=== PATIENT | female | born 1965 | race Caucasian/White ===

== ENCOUNTER 2017-03-01 23:50 | Inpatient (IN) | payer MEDICARE ==
--- NOTE | ~2017-03-01 | DS ---
Discharge Summary [facility] [address] [place]. [address] NAME: KEVIN VASQUEZ : 65 STATUS : DIS IN PAT#: [id number] AGE: 51 ADM/REG DATE : 03/02/17 MR#: [id number] REPORT SERV DATE: 03/08/17 DICTATED BY: JESSICA ANTONY DATE: 03/07/17 REPORT STATUS : Draft TRANSCRIBED BY: MODL DATE: 03/07/17 ADMISSION DATE: 03/02/2017 DISCHARGE DATE: 03/07/2017 ADDENDUM: This dictation is an addition to interim discharge summary dictated by Dr. Ingram on 03/05/2017. I assumed care of the patient, 03/06/2017. At the time of my assumption of care, the patient still had [id number] wheezing. The patient reports that she has returned to baseline. Therapy was continued, antibiotics and steroids. The patient has significantly improved today. She remains hemodynamically stable. Given completion of workup and given her improvement and resolution of her presenting complaints, we will discharge the patient today. Plan has been discussed with the patient, who voices understanding and is agreeable with this plan. DISCHARGE DIAGNOSES: 1. Chronic obstructive pulmonary disease exacerbation. 2. Obesity hypoventilation syndrome. 3. Obstructive sleep apnea. 4. Morbid obesity. 5. Bipolar disorder. 6. Hypertension. DISCHARGE EXAM: VITAL SIGNS: Blood pressure 146/56, pulse of 83, respirations 16, O2 saturation 97% on 2 L nasal cannula, and temperature 97.5. GENERAL: The patient is lying in bed, in no acute distress. Appears stated age. Normal respiratory effort. Speaking in complete sentences. HEENT: Normocephalic, atraumatic. Extraocular motors intact. Moist oral mucosa. Anicteric sclerae. Pupils are reactive to light and accommodation. NECK: Full. Trachea midline, symmetric. No thyromegaly noted. No lymphadenopathy present. No JVD appreciated. CHEST: Nontender to palpation. No scars noted. CARDIOVASCULAR: Regular rate and rhythm. S1, S2. No murmurs, rubs, or gallops. LUNGS: Clear to auscultation bilaterally; however, decreased breath sounds secondary to body habitus. ABDOMEN: Obese. Positive bowel sounds. Nontender, nondistended. EXTREMITIES: No cyanosis, no clubbing, no edema. NEURO: Alert and oriented x3. No focal deficits appreciated. DISCHARGE MEDICATIONS: Depakote 250 mg p.o. every morning and Depakote 500 mg p.o. at bedtime, Prozac 20 mg p.o. twice a day, Singulair 10 mg p.o. daily, pantoprazole 40 mg p.o. daily, pravastatin 40 mg p.o. daily, Spiriva one puff inhalation daily, Topamax 50 mg p.o. twice a day, hydrocortisone 20 mg p.o. every morning, hydrocortisone 5 mg p.o. at bedtime. Of note, the patient was currently on hydrocortisone secondary to concern about adrenal insufficiency. In the hospital course setting, there was no evidence of that, however. The Discharge Summary [address] [address] NAME: KEVIN VASQUEZ : 65 STATUS : DIS IN PAT#: [id number] AGE: 51 ADM/REG DATE : 03/02/17 MR#: [id number] REPORT SERV DATE: 03/08/17 DICTATED BY: JESSICA ANTONY DATE: 03/07/17 REPORT STATUS : Draft TRANSCRIBED BY: SRINIVASAN DATE: 03/07/17 patient was placed on medication by primary care physician, who has better knowledge and more records available than we do here. Given that, we will continue Cortef for now and have primary care physician revisit the need for hydrocortisone. DISPOSITION: The patient will be discharged home. ACTIVITY: As tolerated. DIET: Low-salt diet. Greater than 30 minutes was spent coordinating discharge planning, dictation of note, medication reconciliation, and providing counseling. GIUSEPPE/SRINIVASAN Jessica Antony MD / [id number] CC: MD Sarbjit Flores M.D.
--- NOTE | ~2017-03-01 | IDS ---
Interim Discharge Summary [facility] [address] [place]. [address] NAME: KEVIN VASQUEZ : 65 STATUS : ADM IN PAT#: [id number] AGE: 51 ADM/REG DATE : 03/02/17 MR#: [id number] REPORT SERV DATE: 03/05/17 DICTATED BY: CHANTE INGRAM DATE: 03/05/17 REPORT STATUS : Draft TRANSCRIBED BY: MODL DATE: 03/05/17 ADMISSION DATE: 03/02/2017 DISCHARGE DATE: REASON FOR ADMISSION: Acute on chronic COPD exacerbation. HISTORY OF PRESENT ILLNESS: Please refer to Dr. Vlades's history and physical dated 03/02 for complete details regarding the patient's admission. In brief, the patient was admitted to the hospitalist service for management of her acute on chronic COPD exacerbation. HOSPITAL COURSE: The patient was admitted by Dr. Valdes and started on Solu-Medrol. She had significant wheezing on the day of admission. She was then switched over to prednisone as she was becoming more comfortable. She was being maintained on Spiriva, antibiotics, budesonide, and arformoterol. She has been clinically improving daily, but slowly. At the time of this dictation, she had a little bit of wheezing on her upper airway, but very diminished breath sounds at the bases. The patient has been wanting to go home every day; however, she still has significant tightness in her chest and concerned that if she were to go home, she will be right back in the ER with a continued flare-up, she is clearly not at her baseline. She does have this questionable history of adrenal insufficiency, for which she is on Cortef at home. However, her Cortef has been discontinued as she has been on prednisone, but her blood pressures have been just fine, I am not convinced that she will need to be back on Cortef after this hospitalization. She did have some QT prolongation on EKG in the ER, likely due to beta agonist; however, this has resolved and has an EKG the following day that did not show any prolonged QT. The patient has continued to use her CPAP here in the hospital. She has not had any issues with her bipolar or pseudoseizures. Further disposition per oncoming hospitalist, starting 03/06, however, anticipate discharging her home in possibly two to three days depending on resolution of her COPD. DISCHARGE DIAGNOSES: Acute on chronic chronic obstructive pulmonary disease, slowly improving; obstructive sleep apnea, on CPAP; lactic acidosis, resolving; morbid obesity; bipolar disease with history of pseudoseizures, now stable; questionable history of Winston's, on Cortef at home, however, her blood pressure has been fine off it here at the hospital. PROCEDURES: Include a chest x-ray. DISPOSITION: We will obtain a followup PA and lateral chest x-ray on Sunday. HEATHER/SRINIVASAN Chante Ingram MD / [id number] Interim Discharge Summary [address] [address] NAME: KEVIN VASQUEZ : 65 STATUS : ADM IN [facility]#: [id number] AGE: 51 ADM/REG DATE : 03/02/17 MR#: [id number] REPORT SERV DATE: 03/05/17 DICTATED BY: CHANTE INGRAM DATE: 03/05/17 REPORT STATUS : Draft TRANSCRIBED BY: SRINIVASAN DATE: 03/05/17 CC: MD Sarbjit Rodriguez M.D.
--- NOTE | ~2017-03-01 | HP ---
History And Physical [facility] [address] [place]. [address] NAME: KEVIN WINN : 65 STATUS : ADM Jonnie PAT#: [id number] AGE: 51 ADM/REG DATE : 03/01/17 MR#: [id number] REPORT SERV DATE: 03/02/17 DICTATED BY: MARCELLO ALTMAN DATE: 03/02/17 REPORT STATUS : Draft TRANSCRIBED BY: MODL DATE: 03/02/17 DATE OF ADMISSION: 03/02/2017 CHIEF COMPLAINT: Shortness of breath. HISTORY OF PRESENT ILLNESS: This is a 51-year-old, obese, female, who has a history of bipolar disorder, pseudoseizures, obstructive sleep apnea, noncompliant with CPAP therapy who presents to the emergency room at [facility] in [place] with the above-mentioned complaint. History is obtained from the patient, her daughter who was at bedside, and reviewing data available on the [employer] system. According to Mrs. Winn, she had been in the usual state of health until about five days ago when she started having runny nose, severe myalgias, and difficulty breathing. She also started having a chronic cough due to the fact she had post-nasal drip-like symptoms. She then developed sore throat because of this as well. In the last day or so, she started wheezing bilaterally and despite using her inhalers could not get up, walk or perform activities of daily living. They finally decided to come into the emergency room to be evaluated. In the emergency room, initial workup revealed. She had an acute exacerbation of her COPD. Chest x-rays did not reveal any acute infiltrates or effusions. EKG appeared to be unremarkable. Hospitalist Service is asked to admit her for further evaluation and treatment. At the time of my evaluation, she denied any chest pain or palpitations. She does have orthopnea. She denied any hemoptysis but has a persistent cough essentially nonproductive, not associated with fever or chills or night sweats. No history of falls or loss of consciousness recently. No history of fever or chills, nausea, vomiting, diarrhea. No history of hematemesis, hematochezia, or hematuria. No other history of recent travel or exposures other than those mentioned above. PAST MEDICAL HISTORY: Significant for history of bipolar disorder, COPD, breast cancer, pseudoseizure disorder with negative EEG, history of DVT and pulmonary embolism in 2002, history of migraine headaches, obstructive sleep apnea noncompliant with CPAP, history of essential hypertension, and adrenal insufficiency. SOCIAL HISTORY: She has about 25- to [id number] history of smoking and has quit many years ago. She denies alcohol use or recreational drug use. She used to deliver automotive parts for a living, currently not working. FAMILY HISTORY: Noncontributory. MEDICATIONS: At home were reviewed by me in the chart today and reordered by me. REVIEW OF SYSTEMS: As in history of present illness. All other systems were reviewed in detail and are quite History And Physical [address] [place]. [address] NAME: KEVIN WINN : 65 STATUS : ADM Jonnie PAT#: [id number] AGE: 51 ADM/REG DATE : 03/01/17 MR#: [id number] REPORT SERV DATE: 03/02/17 DICTATED BY: MARCELLO ALTMAN DATE: 03/02/17 REPORT STATUS : Draft TRANSCRIBED BY: SRINIVASAN DATE: 03/02/17 unremarkable. PHYSICAL EXAMINATION: GENERAL: This is a pleasant, 51-year-old, not in any acute distress. HEENT: Head is atraumatic, normocephalic. She is alert, awake, oriented to time, place, and person. Pupils are equal, reacting to light and accommodating. External ocular muscles are intact. Membranes are moist and pink. Sclerae are nonicteric. NECK: Supple with no jugular venous distention, lymphadenopathy, thyromegaly. LUNGS: Auscultation of her lungs revealed diffuse bilateral expiratory wheezes without any crackles. Trachea was in the midline. HEART: Auscultation of her heart revealed regular rate and rhythm with no murmurs, rubs, or gallops appreciated. ABDOMEN: Soft, nontender. Bowel sounds are present. EXTREMITIES: No cyanosis, clubbing, or edema. NEUROLOGIC: Grossly intact. No focal sensory or motor deficits. Higher functions appeared intact. Gait was not examined. VITAL SIGNS: Her vital signs today showed temperature of 97.6, pulse 99, respirations 22 a minute, blood pressure was 121/58, oxygen saturations were 98%, breathing 2 L of oxygen via nasal cannula. LABORATORY DATA: Reviewed on the [employer] system showed a pH of 7.33 on arterial blood gas, pCO2 was 39, PO2 of 75, and bicarb was 20. CMP showed sodium of 145, potassium 3.6, chloride 107, CO2 of 26, BUN was 12 with a creatinine of 1.38, and glucose was 96. Her troponin was 0.02 today and lactate was 2.0. CBC revealed a white blood cell count of 7000. Normal hemoglobin, hematocrit, and platelet count. Films of the chest x-ray were reviewed by me on the PACS today and interpreted by me. Per my interpretation, there is normal bony architecture with no cardiomegaly. Lung [place] appeared clear with no lobar consolidations or effusions. 12-lead EKG done in the emergency room was reviewed and interpreted by me. There is normal sinus rhythm with a rate of [address] elevations or depressions. There is however QT prolongation. Influenza A and B were negative today. IMPRESSION: 1. Shortness of breath. 2. Acute exacerbation of chronic obstructive pulmonary disease. 3. QT-prolongation probably secondary to beta agonists. 4. Adrenal insufficiency. 5. Bipolar disorder. 6. Obstructive sleep apnea, noncompliant with CPAP therapy. 7. History of pseudoseizures. 8. Deep vein thrombosis and pulmonary emboli in 2002. PLAN: We will admit Mrs. Winn to the Hospitalist Service in a monitored bed for 24-hour observation. She does have QT prolongation which may be secondary to overuse of the beta agonist. We will give it only in scheduled doses and also start her on intravenous steroids and inhaled corticosteroids. We will continue other medications and treatments at this time. We will repeat an EKG in 24 hours for followup. Obtain chemistry, electrolytes, and replace as needed and we will place her on unfractionated heparin for DVT prophylaxis as History And Physical [address] [address] NAME: KEVIN WINN : 65 STATUS : ADM Jonnie PAT#: [id number] AGE: 51 ADM/REG DATE : 03/01/17 MR#: [id number] REPORT SERV DATE: 03/02/17 DICTATED BY: MARCELLO ALTMAN DATE: 03/02/17 REPORT STATUS : Draft TRANSCRIBED BY: MODL DATE: 03/02/17 well. We will also check random cortisol level as well. I have discussed the above plans with the patient and the daughter. Questions were answered and she is agreeable to the above recommendations. Hospitalist Service will be following her during her stay here. /SRINIVASAN Marcello Altman M.D. / [id number] CC: Uziel Ramirez Jr, MD Stanley Ireland, M.D.
[2017-03-01 22:46] LABS: INFLUENZA A SCREEN NEGATIVE (NEGATIVE); INFLUENZA B SCREEN NEGATIVE (NEGATIVE)
[~2017-03-01 23:50] MED LIST: ADOXA100 MG PO; ALBUTEROL INH; ALBUTEROL NEB INH; ALBUTEROL NEBS; ALBUTEROL5 INH; ALEVE220 MG PO; ALLEGRA180 PO; ARIMIDEX1 PO; ASA5GR PO; ASAB PO; ATV.5 PO; ATV1 PO; AUG875 PO; AURALGAN OT; CALAN40 MG PO; CEFZIL500 MG PO; CELEXA20 PO; CIP5 PO; CORTEF20 MG PO; CORTEF5 PO; CRESTOR5 MG PO; D.O.S.100 MG PO; DARVOCET PO; DEMA20 PO; DEPAK250ER PO; DEPAKOT250 PO; DEPAKOT500 PO; DEPAKOTEER PO; DEPASPRINK PO; DIL2TAB PO; DIOV160 PO; DIOV80 PO; DIOVAN HC2 PO; DSS PO; ENDOCET1 TA3 PO; FIOR PO; FIORICET 50-301 EACH PO; FIORICET PO; FIORINAL PO; FLEX PO; FLONASE NAS; GARLIQUE; HALF81 PO; HCTZ12.5 PO; HYDROCORTISONE PO; IMOD PO; K-TABS10 MEQ PO; KDUR10 PO; KDUR20 PO; KEPPRA500 PO; KLONO1 PO; KLONO5 PO; KLOR-CON M1010 MEQ PO; KLOR-CON M2020 MEQ PO; KLOR-CON PO; L20 PO; L40 PO; LEVAQUIN750 MG PO; LEXAPRO20 PO; MEDROLPAK4 PO; MEP50TAB PO; METHOC750B PO; MEVACOR PO; MICRO-K10 MEQ PO; MONODOX100 MG PO; MSIMMR15 PO; MUCINEX1200 MG PO; MUCINEX600 MG PO; NEUR300 PO; NOR10 PO; NORCO1 TAB PO; NORV10 PO; NORV25 PO; NORV5 PO; OMNICEF300 PO; P10 PO; P20 PO; PERCOCET1 TA4 PO; PLAVIX PO; POTASSIUM CHLORIDE PO; PR25 PO; PR25P IM; PRAVAC PO; PRAVACHOL40 MG PO; PRILOSEC OTC20 MG PO; PRIN20 PO; PRIN5 PO; PROAIR HFA INH; PROTONIX PO; PROVENTSOL INH; PROVHFA INH; PROZAC; PROZAC PO; PROZAC40 MG PO; REM15 PO; REMERON30 MG PO; SEROQUEL; SEROQUEL25 PO; SINGULAIR1 PO; SPIRIVA INH; SPIRIVA RESPIMAT INH; STERAPRED DS10 MG PO; SUCR PO; SYMBICORT 160/41 INH INH; SYMBICORT INH; T200 PO; TAMIFLU PO; TESSALON200 MG PO; TOPAMAX100 PO; TOPAMAX25 PO; TOPAMAX50 MG PO; V5 PO; VIBRATAB100 MG PO; VIIBRYD40 MG PO; ZANAFLEX 4 MG TA4 MG PO; ZESTRIL20 MG PO; ZITH250 PO; ZOL100 PO; ZOL50 PO; ZYPREXA; ZYPREXA10 MG PO; [UNRECOGNIZED DRUG - REMARK] PO
[2017-03-02 02:38] LABS: BASOPHILS 1.3 %; BASOPHILS ABSOLUTE 0.09 10/3/uL (0.0-0.16); EOSINOPHILS ABSOLUTE 0.28 10/3/uL (0.0-0.53); ER CBC TAT 0 Hrs 05 Mins; HEMATOCRIT 40.4 % (36.0-48.0); HEMOGLOBIN 12.8 g/dL (12.0-16.0); IMMATURE GRANULOCYTES 0.1 %; IMMATURE GRANULOCYTES ABSOLUTE 0.01 10/3/uL (0.0-0.11); LYMPHOCYTES 35.8 %; LYMPHOCYTES ABSOLUTE 2.49 10/3/uL (0.67-4.30); MEAN CORPUS HGB CONC 31.7 g/dL (32.0-36.0); MEAN CORPUSCULAR VOLUME 91.4 fL (80-100); MEAN PLATELET VOLUME 11.1 fL (9.2-13.0); MONOCYTES 7.8 %; MONOCYTES ABSOLUTE 0.54 10/3/uL (0.21-1.20); NEUTROPHILS ABSOLUTE 3.55 10/3/uL (2.02-8.40); PLATELET COUNT 231 10/3/uL (150-400); RBC DISTRIBUTION WIDTH 13.6 % (12.0-16.0); RED CELL COUNT 4.42 10/6/uL (4.0-5.6)
[2017-03-02 02:39] LABS: MANUAL DIFF NO %
[2017-03-02 02:56] LABS: A/G RATIO 1.1 (0.7-1.9); ALBUMIN 3.3 G/DL (3.5-5.0); ALKALINE PHOSPHATASE 107 U/L (45-117); CALCIUM, SERUM 8.6 MG/DL (8.5-10.4); CHLORIDE, SERUM 107 MMOL/L (96-112); CO2 (CARBON DIOXIDE) 26 MMOL/L (24-34); CREATININE 1.38 MG/DL (0.55-1.02); GFR AFRICAN AMERICAN 51 ML/MIN (>=60); GFR NON AFRICAN AMERICAN 44 ML/MIN (>=60); GLOBULIN 2.9 G/DL (2.5-4.1); GLUCOSE, SERUM 96 MG/DL (60-99); POTASSIUM, SERUM 3.6 MMOL/L (3.5-5.3); SGOT(AST) 7 U/L (5-40); SGPT(ALT) 9 U/L (5-65); SODIUM, SERUM 145 MMOL/L (135-148); TOTAL BILIRUBIN 0.3 MG/DL (0-1.2); TOTAL PROTEIN 6.2 G/DL (6.0-8.5)
[2017-03-02 02:57] LABS: BUN (BLOOD UREA NITROGEN) 12 MG/DL (6-23)
[2017-03-02 04:02] LABS: ALLENS TEST Pos; BE (BASE EXCESS) -5.4 MEQ/L (0 +/- 2.5); CARBOXYHEMOGLOBIN 1.2 % (0-3); HEMOBLOGIN CONTENT 12.8 G/DL (12-16); INSTRUMENT SERIAL # 8087; METHEMOGLOBIN 0.1 % (0-3); O2 CONTENT 16.7 VOL% (18-24); OPERATOR ID 17589; PCO2 (CO2 TENSION) 39 MMHG (35-45); PO2 (O2 TENSION) 75 MMHG (79-93); SAMPLE Arterial; pH 7.33 (7.37-7.43)
[2017-03-02 04:30] LABS: CPK (IF ELEVATED MB BANDS) 25 U/L (0-200); TROPONIN I <0.02 NG/ML (<0.05)
[2017-03-02] MEDS ORDERED: FIORICET-COD 51 EACH PO (06:47)
[2017-03-02] MEDS ORDERED: DEPAKOT250 PO ×2 (06:50)
[2017-03-02] MEDS ORDERED: PROZAC PO (06:51)
[2017-03-02] MEDS ORDERED: CORTEF20 MG PO (06:53)
[2017-03-02] MEDS ORDERED: CORTEF5 PO (06:54)
[2017-03-02] MEDS ORDERED: SINGULAIR1 PO (06:54)
[2017-03-02] MEDS ORDERED: PROTONIX PO (06:55)
[2017-03-02] MEDS ORDERED: PRAVACHOL40 MG PO (06:55)
[2017-03-02] MEDS ORDERED: TOPAMAX50 MG PO (06:56)
[2017-03-02] MEDS ORDERED: DEMA20 PO (06:57)
[2017-03-02] MEDS ORDERED: KDUR20 PO (06:58)
[2017-03-02] MEDS ORDERED: PR25 PO (06:59)
[2017-03-02] MEDS ORDERED: SPIRIVA RESPIMAT INH (06:59)
[2017-03-02] MEDS ORDERED: SYMBICORT 160/41 INH INH (07:00)
[2017-03-03 06:13] LABS: BASOPHILS 0.1 %; BASOPHILS ABSOLUTE 0.01 10/3/uL (0.0-0.16); EOSINOPHILS 0 %; HEMATOCRIT 38.6 % (36.0-48.0); HEMOGLOBIN 12.5 g/dL (12.0-16.0); IMMATURE GRANULOCYTES 1.1 %; LYMPHOCYTES 9.8 %; LYMPHOCYTES ABSOLUTE 0.91 10/3/uL (0.67-4.30); MEAN CORPUS HGB CONC 32.4 g/dL (32.0-36.0); MEAN CORPUSCULAR HEMOGLOB 29.2 pg (26.0-34.0); MEAN CORPUSCULAR VOLUME 90.2 fL (80-100); MEAN PLATELET VOLUME 11.1 fL (9.2-13.0); MONOCYTES 1.4 %; MONOCYTES ABSOLUTE 0.13 10/3/uL (0.21-1.20); NEUTROPHILS 87.6 %; NEUTROPHILS ABSOLUTE 8.18 10/3/uL (2.02-8.40); PLATELET COUNT 242 10/3/uL (150-400); RBC DISTRIBUTION WIDTH 13.7 % (12.0-16.0); RED CELL COUNT 4.28 10/6/uL (4.0-5.6); WHITE BLOOD CELLS 9.3 10/3/uL (4.5-10.5)
[2017-03-03 06:14] LABS: MANUAL DIFF NO %
[2017-03-03 06:31] LABS: BUN (BLOOD UREA NITROGEN) 16 MG/DL (6-23); CALCIUM, SERUM 9.3 MG/DL (8.5-10.4); CHLORIDE, SERUM 111 MMOL/L (96-112); CO2 (CARBON DIOXIDE) 18 MMOL/L (24-34); CREATININE 1.35 MG/DL (0.55-1.02); GFR AFRICAN AMERICAN 53 ML/MIN (>=60); GFR NON AFRICAN AMERICAN 45 ML/MIN (>=60); GLUCOSE, SERUM 156 MG/DL (60-99); POTASSIUM, SERUM 3.8 MMOL/L (3.5-5.3); SODIUM, SERUM 144 MMOL/L (135-148)
[2017-03-07 04:04] LABS: HEMATOCRIT 35.3 % (36.0-48.0); HEMOGLOBIN 11.4 g/dL (12.0-16.0); MEAN CORPUS HGB CONC 32.3 g/dL (32.0-36.0); MEAN CORPUSCULAR HEMOGLOB 29.1 pg (26.0-34.0); MEAN CORPUSCULAR VOLUME 90.1 fL (80-100); MEAN PLATELET VOLUME 10.9 fL (9.2-13.0); PLATELET COUNT 224 10/3/uL (150-400); RBC DISTRIBUTION WIDTH 14.5 % (12.0-16.0); RED CELL COUNT 3.92 10/6/uL (4.0-5.6); WHITE BLOOD CELLS 9.6 10/3/uL (4.5-10.5)
[2017-03-07 04:05] LABS: MANUAL DIFF YES %
[2017-03-07 04:21] LABS: A/G RATIO 1.1 (0.7-1.9); ALBUMIN 3.1 G/DL (3.5-5.0); BUN (BLOOD UREA NITROGEN) 14 MG/DL (6-23); CHLORIDE, SERUM 107 MMOL/L (96-112); CREATININE 1.19 MG/DL (0.55-1.02); GFR AFRICAN AMERICAN 61 ML/MIN (>=60); GFR NON AFRICAN AMERICAN 53 ML/MIN (>=60); GLOBULIN 2.8 G/DL (2.5-4.1); POTASSIUM, SERUM 3.7 MMOL/L (3.5-5.3); SGPT(ALT) 15 U/L (5-65); SODIUM, SERUM 142 MMOL/L (135-148); TOTAL BILIRUBIN 0.1 MG/DL (0-1.2); TOTAL PROTEIN 5.9 G/DL (6.0-8.5)
[2017-03-07 04:23] LABS: ALKALINE PHOSPHATASE 94 U/L (45-117); CALCIUM, SERUM 8.2 MG/DL (8.5-10.4); CO2 (CARBON DIOXIDE) 28 MMOL/L (24-34); GLUCOSE, SERUM 90 MG/DL (60-99); SGOT(AST) < 3 U/L (5-40)
[2017-03-07 04:54] LABS: IMMATURE GRANS ABSOLUTE (CALC) 0.38 10/3/uL (0.0-0.11); LYMPHOCYTES 19 %; LYMPHOCYTES ABSOLUTE (CALC) 1.82 10/3/uL (0.67-4.30); METAMYELOCYTES 1 %; MONOCYTES 8 %; MONOCYTES ABSOLUTE (CALC) 0.77 10/3/uL (0.21-1.20); MYELOCYTES 3 %; NEUTROPHILS ABSOLUTE (CALC) 6.62 10/3/uL (2.02-8.40); PLATELET ESTIMATE ADQ (ADEQUATE); RBC MORPHOLOGY NORM (NORMAL); SEGMENTED NEUTROPHIL (0) 69 %; TOTAL NUCLEATED CELLS 100
[2017-03-07] MEDS ORDERED: P20 PO (10:51)
[2017-05-25] MEDS ORDERED: FLEX PO (21:50)
[2017-06-06] MEDS ORDERED: OMNICEF300 PO (14:58)
[2017-06-06] MEDS ORDERED: NORCO1 TA1 PO (14:59)
[2017-06-06] MEDS ORDERED: COREG3 PO (14:59)
== END 2017-03-07 13:38 | disposition home or self-care (01) | DRG 191 ==
LOC: ER 23:50 → CDU1 23:59 → CDU2 03-02 07:12 → 7NO 03-02 10:18
PROVIDERS: Hospitalist; Internal Medicine; Specialist
DX: J44.1 Chronic obstructive pulmonary disease with (acute) exacerbation (principal); E66.2 Morbid (severe) obesity with alveolar hypoventilation; E87.2 Acidosis; Z99.81 Dependence on supplemental oxygen; Z68.42 Body mass index [BMI] 45.0-49.9, adult; E27.40 Unspecified adrenocortical insufficiency; I10 Essential (primary) hypertension; I25.10 Atherosclerotic heart disease of native coronary artery without angina pectoris; Z95.1 Presence of aortocoronary bypass graft; F31.9 Bipolar disorder, unspecified; Z87.891 Personal history of nicotine dependence; Z86.718 Personal history of other venous thrombosis and embolism
CPT/HCPCS: 36600; 71010; 71020; 80048; 80053; 82550; 82805; 83605; 83735; 84100; 84484; 85025; 87040; 87070; 87205; 87804; 93005; 94640; 96374; 96375; 99285; A9270-GY; J0360; J0456; J1956; J2930

== ENCOUNTER 2017-03-09 15:57 | Emergency (ER) | payer MEDICARE ==
[~2017-03-09 15:57] MED LIST changes: +FIORICET-COD 51 EACH PO
[2017-05-25] MEDS ORDERED: FLEX PO (21:50)
[2017-06-06] MEDS ORDERED: OMNICEF300 PO (14:58)
[2017-06-06] MEDS ORDERED: NORCO1 TA1 PO (14:59)
[2017-06-06] MEDS ORDERED: COREG3 PO (14:59)
== END 2017-03-09 17:48 | disposition home or self-care (01) ==
LOC: ER 15:57
PROC: 2W3QX1Z Immobilization of Right Lower Leg using Splint (ICD-10-PCS; principal; 2017-03-09)
DX: S82.54XA Nondisplaced fracture of medial malleolus of right tibia, initial encounter for closed fracture (principal); J44.9 Chronic obstructive pulmonary disease, unspecified; Z86.711 Personal history of pulmonary embolism; Z91.09 Other allergy status, other than to drugs and biological substances; Z79.52 Long term (current) use of systemic steroids; Z79.899 Other long term (current) drug therapy; W19.XXXA Unspecified fall, initial encounter
CPT/HCPCS: 73610-RT; 96372; 99284

== ENCOUNTER 2017-04-02 23:30 | Emergency (ER) | payer MEDICARE ==
[2017-04-03 00:15] LABS: BASOPHILS 0.3 %; BASOPHILS ABSOLUTE 0.03 10/3/uL (0.0-0.16); EOSINOPHILS 4.4 %; ER CBC TAT 0 Hrs 00 Mins; HEMATOCRIT 38.3 % (36.0-48.0); HEMOGLOBIN 12.1 g/dL (12.0-16.0); IMMATURE GRANULOCYTES 1.3 %; IMMATURE GRANULOCYTES ABSOLUTE 0.12 10/3/uL (0.0-0.11); LYMPHOCYTES 13.3 %; LYMPHOCYTES ABSOLUTE 1.21 10/3/uL (0.67-4.30); MEAN CORPUS HGB CONC 31.6 g/dL (32.0-36.0); MEAN CORPUSCULAR HEMOGLOB 29.6 pg (26.0-34.0); MEAN PLATELET VOLUME 9.7 fL (9.2-13.0); MONOCYTES 10.1 %; MONOCYTES ABSOLUTE 0.92 10/3/uL (0.21-1.20); NEUTROPHILS 70.6 %; NEUTROPHILS ABSOLUTE 6.39 10/3/uL (2.02-8.40); PLATELET COUNT 259 10/3/uL (150-400); RED CELL COUNT 4.09 10/6/uL (4.0-5.6); WHITE BLOOD CELLS 9.1 10/3/uL (4.5-10.5)
[2017-04-03 00:16] LABS: MEAN CORPUSCULAR VOLUME 93.6 fL (80-100)
[2017-04-03 00:31] LABS: ALBUMIN 3.1 G/DL (3.5-5.0); BUN (BLOOD UREA NITROGEN) 12 MG/DL (6-23); CALCIUM, SERUM 8.8 MG/DL (8.5-10.4); CHLORIDE, SERUM 108 MMOL/L (96-112); CO2 (CARBON DIOXIDE) 27 MMOL/L (24-34); CREATININE 1.35 MG/DL (0.55-1.02); GFR AFRICAN AMERICAN 52 ML/MIN (>=60); GFR NON AFRICAN AMERICAN 45 ML/MIN (>=60); GLOBULIN 3.1 G/DL (2.5-4.1); GLUCOSE, SERUM 97 MG/DL (60-99); POTASSIUM, SERUM 3.6 MMOL/L (3.5-5.3); SGPT(ALT) 10 U/L (5-65); SODIUM, SERUM 140 MMOL/L (135-148); TOTAL BILIRUBIN 0.3 MG/DL (0-1.2); TOTAL PROTEIN 6.2 G/DL (6.0-8.5)
[2017-04-03 00:33] LABS: ALKALINE PHOSPHATASE 122 U/L (45-117); DEPAKENE (VALPROIC ACID) 74.8 MCG/ML (50.0-100.0); SGOT(AST) < 3 U/L (5-40)
[2017-04-03 00:40] LABS: MANUAL DIFF NO %
[2017-05-25] MEDS ORDERED: FLEX PO (21:50)
[2017-06-06] MEDS ORDERED: OMNICEF300 PO (14:58)
[2017-06-06] MEDS ORDERED: NORCO1 TA1 PO (14:59)
[2017-06-06] MEDS ORDERED: COREG3 PO (14:59)
== END 2017-04-03 03:16 | disposition home or self-care (01) ==
LOC: ER 23:30
PROVIDERS: Hospitalist
DX: R41.0 Disorientation, unspecified (principal); J44.9 Chronic obstructive pulmonary disease, unspecified; I10 Essential (primary) hypertension; F31.9 Bipolar disorder, unspecified; Z85.3 Personal history of malignant neoplasm of breast; Z87.01 Personal history of pneumonia (recurrent); Z87.891 Personal history of nicotine dependence; Z90.710 Acquired absence of both cervix and uterus; Z88.8 Allergy status to other drugs, medicaments and biological substances; Z79.52 Long term (current) use of systemic steroids; Z79.899 Other long term (current) drug therapy
CPT/HCPCS: 80053; 80164; 82533; 85025; 99285

== ENCOUNTER 2017-08-07 12:48 | Emergency (ER) | payer MEDICARE ==
[~2017-08-07 12:48] MED LIST changes: +COREG3 PO; +NORCO1 TA1 PO
[2017-08-07 13:45] LABS: BASOPHILS 1.3 %; BASOPHILS ABSOLUTE 0.07 10/3/uL (0.0-0.16); EOSINOPHILS 4.8 %; EOSINOPHILS ABSOLUTE 0.25 10/3/uL (0.0-0.53); IMMATURE GRANULOCYTES 0.2 %; IMMATURE GRANULOCYTES ABSOLUTE 0.01 10/3/uL (0.0-0.11); LYMPHOCYTES 31.7 %; LYMPHOCYTES ABSOLUTE 1.66 10/3/uL (0.67-4.30); MEAN CORPUS HGB CONC 32.2 g/dL (32.0-36.0); MEAN CORPUSCULAR HEMOGLOB 29.8 pg (26.0-34.0); MEAN CORPUSCULAR VOLUME 92.6 fL (80-100); MEAN PLATELET VOLUME 11.5 fL (9.2-13.0); MONOCYTES 11.5 %; NEUTROPHILS 50.5 %; NEUTROPHILS ABSOLUTE 2.65 10/3/uL (2.02-8.40); RBC DISTRIBUTION WIDTH 13.5 % (12.0-16.0)
[2017-08-07 13:46] LABS: ER CBC TAT 0 Hrs 03 Mins; HEMATOCRIT 42.3 % (36.0-48.0); HEMOGLOBIN 13.6 g/dL (12.0-16.0); MANUAL DIFF NO %; PLATELET COUNT 268 10/3/uL (150-400); RED CELL COUNT 4.57 10/6/uL (4.0-5.6); WHITE BLOOD CELLS 5.2 10/3/uL (4.5-10.5)
[2017-08-07 14:02] LABS: CALCIUM, SERUM 9.2 MG/DL (8.5-10.4); CHLORIDE, SERUM 108 MMOL/L (96-112); CO2 (CARBON DIOXIDE) 25 MMOL/L (24-34); CREATININE 1.22 MG/DL (0.55-1.02); GFR AFRICAN AMERICAN 59 ML/MIN (>=60); GFR NON AFRICAN AMERICAN 51 ML/MIN (>=60); POTASSIUM, SERUM 3.4 MMOL/L (3.5-5.3); SGOT(AST) 52 U/L (5-40); SGPT(ALT) 59 U/L (5-65); SODIUM, SERUM 143 MMOL/L (135-148); TOTAL BILIRUBIN 0.4 MG/DL (0-1.2)
[2017-08-07 14:04] LABS: PARTIAL THROMBO TIME 28.3 SEC (22.5-37.2); PROTIME (NOT ORD) 13.4 SEC (12.0-14.5)
[2017-08-07 14:07] LABS: ALBUMIN 3.5 G/DL (3.5-5.0); ALKALINE PHOSPHATASE 217 U/L (45-117); BUN (BLOOD UREA NITROGEN) 12 MG/DL (6-23); GLOBULIN 3.4 G/DL (2.5-4.1); GLUCOSE, SERUM 91 MG/DL (60-99); TOTAL PROTEIN 6.9 G/DL (6.0-8.5)
== END 2017-08-07 16:25 | disposition home or self-care (01) ==
LOC: ER 12:48
PROVIDERS: Emergency Medicine
DX: R51 Headache (principal); F44.4 Conversion disorder with motor symptom or deficit; J44.9 Chronic obstructive pulmonary disease, unspecified; I10 Essential (primary) hypertension; G47.30 Sleep apnea, unspecified; F31.9 Bipolar disorder, unspecified; F41.9 Anxiety disorder, unspecified; Z79.899 Other long term (current) drug therapy; Z88.8 Allergy status to other drugs, medicaments and biological substances; Z79.52 Long term (current) use of systemic steroids
CPT/HCPCS: 70450; 80053; 82962; 85025; 85610; 85730; 96372; 99284; J2800